=== PATIENT | male | born 1990 | race Caucasian/White ===

== ENCOUNTER 2024-10-30 15:13 | Emergency (ER) | payer OTHER, SELFPAY ==
[2024-10-30 15:24] VITALS: BP 134/69; PULSE 88; RESP 16; TEMP 36.2; O2SAT 100; BMI 26.6
[2024-10-30] MEDS: ONDANSETRON 4 MG/2 ML INJ IV (15:35)
[2024-10-30 15:56] LABS: Add Manual Diff / Slide Review SLIDE REVIEW; Basophils Absolute Auto 0 /uL (0-100); Basophils Percent Auto 0.1 % (0-2); Eosinophils Absolute Auto 0 /uL (0-450); Eosinophils Percent Auto 0.1 % (2-4); Hematocrit 43.7 % (36-46); Hemoglobin 14.2 g/dL (12.0-16.0); Lymphocytes Absolute Auto 900 /uL (1100-4500); Lymphocytes Percent Auto 4.7 % (25-40); Mean Corpuscular HGB Conc 32.5 % (30-36); Mean Corpuscular Hemoglobin 22.2 PG (26-34); Mean Corpuscular Volume 68.1 fL (80-100); Monocytes Absolute Auto 500 /uL (0-900); Monocytes Percent Auto 2.6 % (3-14); Neutrophils Absolute Auto 17400 /uL (1500-7000); Neutrophils Percent Auto 92.5 % (50-75); Platelet Count 255 X10^3/uL (150-400); Red Blood Cell Count 6.42 X10^6/uL (4.0-5.2); Red Cell Distribution Width 15.8 % (11.6-14.8); White Blood Cell Count 18.8 X10^3/uL (4.5-11.0)
[2024-10-30 16:01] LABS: Alanine Aminotransferase 56 IU/L (<35); Albumin Globulin Ratio 1.6 (1.0-2.8); Alkaline Phosphatase 67 U/L (38-126); Aspartate Aminotransferase 119 IU/L (14-36); BUN Creatinine Ratio 17.3 (6-22); Bilirubin Total 0.6 mg/dL (0.2-1.3); Blood Urea Nitrogen 14 mg/dL (7-17); Calcium 9.6 mg/dL (8.4-10.2); Carbon Dioxide 24 mmol/L (22-32); Chloride 102 mmol/L (98-107); Estimated Glomerular Filt Rate > 60 mL/min (>60); Globulin 3.2 g/dL (1.7-4.1); Glucose 126 mg/dL (70-99); HEMOLYSIS < 15 (0-50); Lipase 46 U/L (23-300); Sodium 140 mmol/L (137-145); Total Protein 8.2 g/dL (6.3-8.2)
[2024-10-30] MEDS: MECLIZINE HCL 12.5 MG TABLET 25 MG PO (16:01)
[2024-10-30 16:07] LABS: Hypochromasia 1+; Microcytosis 2+; Ovalocytes 1+
[2024-10-30 17:51] LABS: Bacteria Urine Occasional (0-1); RBC Urine 0-1/HPF (0-5/HPF); Squamous Epithelial Cell Urine 0-1 /HPF (0-5/HPF); Urine Volume 10mL (spun); WBC Urine 0-1/HPF (0-5/HPF)
[2024-10-30 17:52] LABS: Mucus Urine 2+ (Negative)
[2024-10-30 18:08] VITALS: BP 126/73; PULSE 78; RESP 16; O2SAT 96
[2024-10-30 18:30] VITALS: BP 122/67; PULSE 73; O2SAT 96
[2024-10-30 19:00] VITALS: BP 142/82; PULSE 89; O2SAT 98
--- NOTE | 2024-10-30 19:04 | ED.NAVMDI ---
HPI - Nausea/Vomiting/Diarrhea General Chief complaint: Nausea/Vomiting/Diarrhea Stated complaint: vertigo, nausea Time Seen by Provider: 10/30/24 18:56 Source: patient Mode of arrival: Ambulatory History of Present Illness HPI Narrative: 33-year-old gentleman with no significant past medical history or surgical history presents with room spinning sensation especially when he moves his head or neck along with multiple episodes of nausea vomiting nonbilious nonbloody earlier this morning unable to hold anything down. He has never had this before he does have a slight headache at the moment but no fever stiff neck or rash. He denies cough runny nose sore throat or any upper respiratory symptoms or urinary complaints. He denies diarrhea did have a bowel movement earlier in last ate this morning. Other than what is stated 14 point review of system is negative. Related Data Previous Rx's Medication Instructions Recorded meclizine 25 mg tablet 25 mg PO TID PRN dizziness #30 tabs 10/30/24 ondansetron 4 mg disintegrating 4 mg PO Q8H PRN nausea and 10/30/24 tablet vomiting #30 tabs Allergies Allergy/AdvReac Type Severity Reaction Status Date / Time No Known Drug Allergies Allergy Verified 10/30/24 15:36 Review of Systems Review of Systems ROS Unobtainable: All systems reviewed & are unremarkable except as noted in HPI and below Patient History Social History Smoking Status: Never smoker Smoking Status: Never smoker Exam Narrative Exam Narrative: GENERAL: [33] year old patient appears stated age. Well-developed patient, in mild distress. HEAD: Atraumatic. Normocephalic. EYES: Pupils equal round and reactive. Extraocular motions intact. No scleral icterus. No injection or drainage. ENT: Nose without bleeding, purulent drainage. Throat without erythema, tonsillar hypertrophy or exudate. Airway patent. NECK: Trachea midline. Non tender CARDIOVASCULAR: Regular rate and rhythm without murmurs, gallops, or rubs. RESPIRATORY: Clear to auscultation. Breath sounds equal bilaterally. No wheezes, rales, or rhonchi. GASTROINTESTINAL: Abdomen soft, non-tender, nondistended. EXTREMITIES: No edema or joint tenderness. BACK: Nontender without deformity or crepitance. No flank tenderness. NEURO: AOx4 nonfocal neuro exam/ neg romberg, finger to nose, opposite heel to lópez intact. SKIN: No rash or erythema of visible areas Initial Vital Signs Initial Vital Signs: Vital Signs Temperature 97.2 F L 10/30/24 15:24 Pulse Rate 88 10/30/24 15:24 Respiratory Rate 16 10/30/24 15:24 Blood Pressure 134/69 10/30/24 15:24 Pulse Oximetry 100 10/30/24 15:24 Oxygen Delivery Method Room Air 10/30/24 15:24 Course Orders Ordered: ED Orders 10/30/24 15:45 Complete Blood Count AUTO DIFF Stat Comprehensive Metabolic Panel Stat Lipase Stat 10/30/24 17:23 Urine Culture Stat Urine Microscopic Stat Ondansetron HCl (Ondansetron 4 Mg/2 Ml Inj) 4 mg IV NOW PRN PRN Reason: Nausea And Vomiting Last Admin: 10/30/24 15:35 Dose: 4 mg Documented By: JANELLE Ondansetron HCl (Ondansetron 4 Mg Odt) 4 mg PO NOW PRN PRN Reason: Nausea And Vomiting Discontinued Medications Meclizine HCl (Meclizine Hcl 12.5 Mg Tablet) 25 mg PO NOW ONE Stop: 10/30/24 15:48 Last Admin: 10/30/24 16:01 Dose: 25 mg Documented By: Vital Signs Vital signs: Vital Signs - 8 hr 10/30/24 15:24 10/30/24 18:08 Temperature 97.2 F L Pulse Rate 88 78 Respiratory Rate 16 16 Blood Pressure 134/69 126/73 Pulse Oximetry 100 96 Oxygen Delivery Method Room Air MDM - Nausea/Vomiting/Diarrhea Lab Data 10/30/24 15:45 10/30/24 15:45 Labs: Lab Results 10/30/24 10/30/24 Range/Units 15:45 17:23 WBC 18.8 H (4.5-11.0) X10^3/uL RBC 6.42 H (4.0-5.2) X10^6/uL Hgb 14.2 (12.0-16.0) g/dL Hct 43.7 (36-46) % MCV 68.1 L (80-100) fL MCH 22.2 L (26-34) PG MCHC 32.5 (30-36) % RDW 15.8 H (11.6-14.8) % Plt Count 255 (150-400) X10^3/uL Neut % (Auto) 92.5 H (50-75) % Lymph % (Auto) 4.7 L (25-40) % [place] % (Auto) 2.6 L (3-14) % Eos % (Auto) 0.1 L (2-4) % Baso % (Auto) 0.1 (0-2) % Neut # (Auto) 92501 H (5168-0412) /uL Lymph # (Auto) 900 L (7759-4085) /uL [place] # (Auto) 500 (0-900) /uL Eos # (Auto) 0 (0-450) /uL Baso # (Auto) 0 (0-100) /uL RBC Morphology See below Hypochromasia 1+ H Microcytosis 2+ H Ovalocytes 1+ H Sodium 140 (137-145) mmol/L Potassium 4.0 (3.4-5.1) mmol/L Chloride 102 (98-107) mmol/L Carbon Dioxide 24 (22-32) mmol/L BUN 14 (7-17) mg/dL Creatinine 0.81 (0.52-1.04) mg/dL Estimated GFR > 60 (>60) mL/min BUN/Creatinine Ratio 17.3 (6-22) Glucose 126 H (70-99) mg/dL Calcium 9.6 (8.4-10.2) mg/dL Total Bilirubin 0.6 (0.2-1.3) mg/dL AST 119 H (14-36) IU/L ALT 56 H (<35) IU/L Alkaline Phosphatase 67 (38-126) U/L Total Protein 8.2 (6.3-8.2) g/dL Albumin 5.0 (3.5-5.0) g/dL Globulin 3.2 (1.7-4.1) g/dL Albumin/Globulin Ratio 1.6 (1.0-2.8) Lipase 46 (23-300) U/L Urine RBC 0-1/hpf (0-5/HPF) Urine WBC 0-1/hpf (0-5/HPF) Ur Squamous Epith Cells 0-1 /hpf (0-5/HPF) Urine Bacteria Occasional (0-1) (None) Urine Mucus 2+ H (Negative) Vol Urine Centrifuged 10ml (spun) Urine Dip Bedside Urine Glucose Negative Bedside Urine Bilirubin - Negative Bedside Urine Ketone +++ 80 Urine Specific [place] 1.010 Bedside Urine Occult Blood - Negative Bedside Urine pH 8 Bedside Urine Protein + 30 Bedside Urine Urobilinogen - Negative Bedside Urine Nitrite - Negative Bedside Urine Leukocytes - Negative Esterase MDM Narrative Medical decision making narrative: All lab work vital signs nurse triage note medication list in all previous ER visits reviewed. GCS 15 nonfocal neuro exam alert and oriented x4 not negative Romberg. Patient given Zofran and meclizine here patient feels much better still slightly symptomatic with room spinning sensation but not as severe as prior. Will DC home on meclizine and Zofran as needed. Patient will be returning to [place] in a few days. Initial diagnosis includes vertigo viral labyrinthitis BPPV Discharge Plan Departure Patient Disposition: Home Clinical Impression: Vertigo Instructions: DI for Vertigo Activity Restrictions/Additional Instructions: Return with new or worsening symptoms. Take your medicines as directed. Prescriptions: New ondansetron 4 mg tablet,disintegrating 4 mg PO Q8H PRN (Reason: nausea and vomiting) Qty: 30 0RF meclizine 25 mg tablet 25 mg PO TID PRN (Reason: dizziness) Qty: 30 0RF Referrals: Miscellaneous,Doctor, MD [Primary Care Provider] - Stand Alone Forms: Patient Portal/API/Survey
[2024-10-30 19:30] VITALS: BP 126/69; PULSE 81; O2SAT 96
== END 2024-10-30 19:44 | disposition home or self-care (01) ==
PROVIDERS: Emergency Medicine; Emergency Provider Family Medicine
DX: R42 Dizziness and giddiness (principal); R11.2 Nausea with vomiting, unspecified; R51.9 Headache, unspecified
CPT/HCPCS: 36415; 80053; 81003; 81015; 83690; 85025; 87086; 96374; 99284; J2405